=== PATIENT | male | born 1940 | race Caucasian/White ===

== ENCOUNTER 2017-01-30 04:51 | Emergency (ER) | payer MEDICARE, OTHER ==
[~2017-01-30] VITALS: Ht 188 cm; Wt 75.0 kg
[~2017-01-30 04:51] MED LIST: ASPI81CH CHEW; BACL10TA PO; CEPH-460 PO; CLON1TAB PO; LISI-515 PO; TAMS5CAP PO; THEO300T24 PO; VENTAER INH
[2017-01-30 04:58] VITALS: BP 193/97; PULSE 76; RESP 18; TEMP 98.7; O2SAT 98
--- NOTE | 2017-01-30 05:11 | PD ---
HPI Chief Complaint: Complaint Time Seen by Provider: 04:58 Travel History International Travel<30 days: No Contact w/Intl Traveler<30days: No Traveled to known affect area: No History of Present Illness HPI 76-year-old male with Valladares catheter brought in by ambulance from home for lower abdominal pain and pain in his groin. The patient reports that the pain started yesterday. He states that the nurse that is supposed to change his catheter at home has not shown up for the last month. He also reports that his urine is very cloudy. Pain described as sharp, constant, slightly worse with movement and palpation. He denies fevers or chills. History of inguinal hernia repair. No other abdominal surgeries. PFSH Past Medical History Anemia: No Arthritis: Yes (KNEES) Asthma: No Autoimmune Disease: No Blood Disorders: No Bipolar Disorder: No Anxiety: Yes (FEELS ANXIOUS WHEN HE HAS "ONE OF THESE ATTACKS") Depression: Yes Heart Rhythm Problems: Yes (BRADYCARDIA) Cancer: No Cardiovascular Problems: Yes High Cholesterol: Yes Chemotherapy: No Chest Pain: No Congestive Heart Failure: No COPD: Yes Cerebrovascular Accident: No Coronary Artery Disease: No Diabetes: No Endocrine: No Gastrointestinal Disorders: No GERD: No Genitourinary: Yes (urine retention) Headaches: No Hepatitis: No Hiatal Hernia: No Hypertension: Yes Implanted Vascular Access Dvce: No Insomnia: Yes Kidney Stones: No Musculoskeletal: No Neurologic: No Psychiatric: No Respiratory: Yes Immunizations Current: Yes Migraines: No Myocardial Infarction: No Pancreatitis: No Radiation Therapy: No Schizophrenia: No Seizures: No Sickle Cell Disease: No Thyroid Disease: No Ulcer: No Past Surgical History Abdominal Surgery: Yes (INGUINAL HERNIA) AICD: No Appendectomy: No Arteriovenous Shunt: No Cardiac Surgery: No Cholecystectomy: No Coronary Artery Bypass Graft: No Coronary Stent: No Insulin Pump: No Joint Replacement: No Oral Surgery: Yes (TOOTH EXTRACTION) Pacemaker: No Tonsillectomy: No Tympanostomy Tube: No Other Surgery: Yes Social History Alcohol Use: Yes (VERY RARELY) Tobacco Use: Yes (1/2 ppd) Substance Use: No Allergies-Medications (Allergen,Severity, Reaction): Coded Allergies: No Known Allergies (Verified , 01/30/17) Reported Meds & Prescriptions Reported Meds & Active Scripts Active Cipro (Ciprofloxacin HCl) 500 Mg Tab 500 Mg PO BID 14 Days Reported Clonazepam 1 Mg Tab 1 Mg PO HS Flomax (Tamsulosin HCl) 0.4 Mg Cap 0.8 Mg PO DAILY Ventolin Hfa 18 GM Inh (Albuterol Sulfate) 90 Mcg/Act Aer 1 Puff INH Q4H PRN Baclofen 10 Mg Tab 10 Mg PO TID Theophylline SR (Theophylline) 300 Mg Tab 300 Mg PO Q12H Lisinopril 20 Mg Tab 20 Mg PO BID Aspirin 81 Mg Chew 81 Mg CHEW DAILY Review of Systems Except as stated in HPI: all other systems reviewed are Neg Physical Exam Narrative GENERAL: Well-developed, well-nourished, comfortable, pleasant, no acute distress. SKIN: Focused skin assessment warm/dry. No rash. HEAD: Atraumatic. Normocephalic. EYES: Pupils equal and round. No scleral icterus. No injection or drainage. ENT: Mucous membranes pink and moist. NECK: Trachea midline. No JVD. CARDIOVASCULAR: Regular rate and rhythm. RESPIRATORY: No accessory muscle use. Clear to auscultation. Breath sounds equal bilaterally. GASTROINTESTINAL: Abdomen soft, nondistended. Mild suprapubic tenderness without peritoneal signs. Rest of abdomen is soft and nontender. Normal bowel sounds. : Valladares in place. Normal external genitalia. Cloudy urine in Valladares bag. MUSCULOSKELETAL: No obvious deformities. No clubbing. No cyanosis. No edema. NEUROLOGICAL: Awake and alert. No obvious cranial nerve deficits. Motor grossly within normal limits. Normal speech. PSYCHIATRIC: Appropriate mood and affect; insight and judgment normal. Data Data Last Documented VS Vital Signs Date Time Temp Pulse Resp B/P Pulse Ox O2 Delivery O2 Flow Rate FiO2 01/30/17 05:14 73 18 179/92 97 Room Air 01/30/17 04:58 98.7 Orders Complete Blood Count With Diff (01/30/17 05:05) Comprehensive Metabolic Panel (01/30/17 05:05) Lipase (01/30/17 05:05) Prothrombin Time / Inr (Pt) (01/30/17 05:05) Act Partial Throm Time (Ptt) (01/30/17 05:05) Urinalysis - C+S If Indicated (01/30/17 05:05) Iv Access Insert/Monitor (01/30/17 05:05) Ecg Monitoring (01/30/17 05:05) Oximetry (01/30/17 05:05) Sodium Chloride 0.9% Flush (Ns Flush) (01/30/17 05:15) Urinary Catheter Insert/Apply (01/30/17 05:05) Morphine Inj (Morphine Inj) (01/30/17 05:30) Urine Culture (01/30/17 05:15) Ceftriaxone Inj (Rocephin Inj) (01/30/17 06:30) Labs Laboratory Tests Test 01/30/17 05:15 White Blood Count 10.6 TH/MM3 Red Blood Count 4.37 MIL/MM3 Hemoglobin 14.1 GM/DL Hematocrit 40.2 % Mean Corpuscular Volume 92.0 FL Mean Corpuscular Hemoglobin 32.2 PG Mean Corpuscular Hemoglobin 35.0 % Concent Red Cell Distribution Width 13.5 % Platelet Count 128 TH/MM3 Mean Platelet Volume 8.6 FL Neutrophils (%) (Auto) 86.3 % Lymphocytes (%) (Auto) 6.4 % Monocytes (%) (Auto) 6.6 % Eosinophils (%) (Auto) 0.4 % Basophils (%) (Auto) 0.3 % Neutrophils # (Auto) 9.1 TH/MM3 Lymphocytes # (Auto) 0.7 TH/MM3 Monocytes # (Auto) 0.7 TH/MM3 Eosinophils # (Auto) 0.0 TH/MM3 Basophils # (Auto) 0.0 TH/MM3 CBC Comment DIFF FINAL Differential Comment Prothrombin Time 11.0 SEC Prothromb Time International 1.0 RATIO Ratio Activated Partial 28.7 SEC Thromboplast Time Urine Color LIGHT-ORANGE Urine Turbidity CLOUDY Urine pH 7.0 Urine Specific [place] 1.015 Urine Protein 300 mg/dL Urine Glucose (UA) NEG mg/dL Urine Ketones NEG mg/dL Urine Occult Blood MOD Urine Nitrite NEG Urine Bilirubin NEG Urine Urobilinogen LESS THAN 2.0 MG/DL Urine Leukocyte Esterase LARGE Urine RBC /hpf Urine WBC /hpf Urine WBC Clumps MANY Urine Bacteria MANY /hpf Urine Yeast (Budding) Microscopic Urinalysis Comment CULTURE INDICATED Sodium Level 142 MEQ/L Potassium Level 3.8 MEQ/L Chloride Level 109 MEQ/L Carbon Dioxide Level 25.2 MEQ/L Anion Gap 8 MEQ/L Blood Urea Nitrogen 19 MG/DL Creatinine 0.87 MG/DL Estimat Glomerular Filtration 85 ML/MIN Rate Random Glucose 117 MG/DL Calcium Level 9.0 MG/DL Total Bilirubin 0.7 MG/DL Aspartate Amino Transf 12 U/L (AST/SGOT) Alanine Aminotransferase 13 U/L (ALT/SGPT) Alkaline Phosphatase 80 U/L Total Protein 6.9 GM/DL Albumin 4.3 GM/DL Lipase 136 U/L MDM Medical Decision Making Medical Screen Exam Complete: Yes Emergency Medical Condition: Yes Differential Diagnosis UTI, Valladares obstruction, renal insufficiency, intra-abdominal infection, cystitis Narrative Course Bedside transabdominal ultrasound performed by me using the curvilinear probe shows Valladares balloon within the bladder with a large and distended bladder. The patient's Valladares catheter was replaced and 600 cc of cloudy urine was obtained. Vital signs reviewed. CBC shows WBC 10.6, hemoglobin 14.1, hematocrit 40.2, platelets 128, neutrophils 86.3%. CMP is unremarkable. Lipase is 136. UA shows cloudy urine, 300 protein, moderate occult blood, large leukocyte esterase, many wbc clumps, many bacteria. Patient was given a dose of Rocephin. He is hemodynamically stable. After replacement of Valladares catheter the patient reports that his pain is completely resolved. He is stable for discharge home with outpatient follow-up with his primary care physician this week. He'll be discharged home with a prescription for Cipro. He was informed on when to return to the emergency department. He verbalizes understanding and agreement with plan. Procedures Procedure Narrative Bedside transabdominal ultrasound: Using the curvilinear ultrasound probe, bedside ultrasound was performed by me and shows Valladares balloon within the bladder with large distended bladder. Diagnosis Primary Impression: Obstructed Valladares catheter Qualified Code: T83.091A - Obstructed Valladares catheter, initial encounter Additional Impression: UTI (urinary tract infection) due to urinary indwelling Valladares catheter Qualified Code: T83.511S - Urinary tract infection associated with indwelling urethral catheter, sequela Referrals: Primary Care Physician 3 days Additional Instructions: Follow-up with your primary care physician this week. Return to the emergency department for worsening symptoms or any other concerns. Scripts Ciprofloxacin (Cipro)500 Mg [id number] Mg PO BID 14 Days Ref 0 Prov:Reggie Eagle MD 01/30/17 Disposition: 01 DISCHARGE HOME Condition: Stable Reggie Eagle MD Jan 30, 2017 05:11 Reggie Eagle MD Jan 30, 2017 05:11
[2017-01-30 05:14] VITALS: BP 179/92; PULSE 73; RESP 18; O2SAT 97
[2017-01-30] MEDS ORDERED: SODIUM CHLORIDE 0.9% FLUSH 10 ML FLUSH IV FLUSH PRN (05:15)
[2017-01-30 05:29] LABS: AUTOMATED NEUTROPHIL # 9.1 TH/MM3 (1.8-7.7); BASOPHIL % 0.3 % (0.0-2.0); EOSINOPHIL % 0.4 % (0.0-4.0); HEMATOCRIT 40.2 % (39.0-51.0); HEMO FLAGS DIFF FINAL; LYMPH % 6.4 % (9.0-44.0); LYMPHOCYTE # 0.7 TH/MM3 (1.0-4.8); MEAN CORPUSCULAR HEMOGLOBIN 32.2 PG (27.0-34.0); MONO % 6.6 % (0.0-8.0); NEUT % 86.3 % (16.0-70.0); PLATELET COUNT 128 TH/MM3 (150-450); RED BLOOD COUNT 4.37 MIL/MM3 (4.50-5.90); RED CELL DISTRIBUTION WIDTH 13.5 % (11.6-17.2); WHITE BLOOD COUNT 10.6 TH/MM3 (4.0-11.0)
[2017-01-30] MEDS ORDERED: MORPHINE SULFATE 4 MG/ML INJ IV PUSH ONE (05:30)
[2017-01-30 05:48] LABS: APTT (PATIENT) 28.7 SEC (24.3-30.1)
[2017-01-30 06:00] LABS: BACTERIA, URINE MANY /hpf; BLOOD, URINE MOD (NEG); COMMENT (UR) CULTURE INDICATED; CULTURE IF INDICATED CULTURE INDICATED; GLUCOSE,URINE NEG (NEG); KETONE, URINE NEG (NEG); NITRITE,URINE NEG (NEG)
[2017-01-30 06:02] LABS: URINE COLOR LIGHT-ORANGE (YELLW/STRAW)
[2017-01-30 06:04] LABS: ALT (GPT) 13 U/L (12-78); ANION GAP 8 MEQ/L (5-15); AST (GOT) 12 U/L (15-37); BICARBONATE 25.2 MEQ/L (21.0-32.0); BLOOD UREA NITROGEN 19 MG/DL (7-18); CHLORIDE 109 MEQ/L (98-107); GLOMERULAR FILTRATION RATE 85 ML/MIN (>89); POTASSIUM 3.8 MEQ/L (3.5-5.1); SODIUM (NA) 142 MEQ/L (136-145)
[2017-01-30 06:07] LABS: ALKALINE PHOSPHATASE 80 U/L (45-117); TOTAL BILIRUBIN ADULT 0.7 MG/DL (0.2-1.0)
[2017-01-30] MEDS ORDERED: cefTRIAXone INJ 1,000 MG in SODIUM CHLORIDE 0.9% INJ 100 ML IV ONE (06:30)
[2017-01-30] MEDS ORDERED: CIPR-9 PO (06:31)
== END 2017-01-30 08:02 | disposition home or self-care (01) ==
LOC: NEPC 04:51
DX: N39.0 Urinary tract infection, site not specified (principal); T83.511A Infection and inflammatory reaction due to indwelling urethral catheter, initial encounter; E78.00 Pure hypercholesterolemia, unspecified; J44.9 Chronic obstructive pulmonary disease, unspecified; B96.20 Unspecified Escherichia coli [E. coli] as the cause of diseases classified elsewhere; Y84.6 Urinary catheterization as the cause of abnormal reaction of the patient, or of later complication, without mention of misadventure at the time of the procedure
CPT/HCPCS: 51702; 80053; 81001; 83690; 85025; 85610; 85730; 87077; 87086; 87186; 96365; 96375; 99284; J0696; J2270

== ENCOUNTER 2017-02-07 17:08 | Emergency (ER) | payer OTHER ==
[~2017-02-07] VITALS: Ht 180.3 cm; Wt 71.0 kg
[~2017-02-07 17:08] MED LIST changes: -CEPH-460 PO; +CIPR-9 PO
[2017-02-07 17:49] VITALS: BP 133/82; PULSE 53; RESP 18; TEMP 97.3; O2SAT 96
[2017-02-07 17:55] LABS: MEAN CORPUSCULAR HGB CONC 36.1 % (32.0-36.0)
[2017-02-07] MEDS ORDERED: CIPR-9 PO (18:17)
[2017-02-07] MEDS ORDERED: CLON0.5T PO (18:17)
[2017-02-07] MEDS ORDERED: NAPR220T95 PO (18:19)
[2017-02-07] MEDS ORDERED: CEPH-460 PO (18:19)
--- NOTE | 2017-02-07 18:21 | PD ---
HPI Chief Complaint: Psychiatric Symptoms Time Seen by Provider: 18:18 Travel History International Travel<30 days: No Contact w/Intl Traveler<30days: No Traveled to known affect area: No History of Present Illness HPI 76-year-old male that presents to the ED for evaluation of psych. Patient was [place] acted by police after apparently he made suicidal statements after his ride from a urologist office did not show up. Patient was frustrated because of this as he went to go home. Patient apparently made statements and the police King acted him for his own safety. Patient states that he's doesn't have any suicidal or homicidal ideation. 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 He denies any illicit drug use or alcohol abuse. He denies any chest pain. No shortness of breath. Other medical prongs at this time. He usually uses a cane to walk. He has no allergies to medication. He has never been King acted. [facility] Past Medical History Anemia: No Arthritis: Yes (KNEES) Asthma: No Autoimmune Disease: No Blood Disorders: No Bipolar Disorder: No Anxiety: Yes (FEELS ANXIOUS WHEN HE HAS "ONE OF THESE ATTACKS") Depression: Yes Heart Rhythm Problems: Yes (BRADYCARDIA) Cancer: No Cardiovascular Problems: Yes High Cholesterol: Yes Chemotherapy: No Chest Pain: No Congestive Heart Failure: No COPD: Yes Cerebrovascular Accident: No Coronary Artery Disease: No Diabetes: No Endocrine: No Gastrointestinal Disorders: No GERD: No Genitourinary: Yes (urine retention) Headaches: No Hepatitis: No Hiatal Hernia: No Hypertension: Yes Implanted Vascular Access Dvce: No Insomnia: Yes Kidney Stones: No Musculoskeletal: No Neurologic: No Psychiatric: No Respiratory: Yes Immunizations Current: Yes Migraines: No Myocardial Infarction: No Pancreatitis: No Radiation Therapy: No Schizophrenia: No Seizures: No Sickle Cell Disease: No Thyroid Disease: No Ulcer: No Past Surgical History Abdominal Surgery: Yes (INGUINAL HERNIA) AICD: No Appendectomy: No Arteriovenous Shunt: No Cardiac Surgery: No Cholecystectomy: No Coronary Artery Bypass Graft: No Coronary Stent: No Insulin Pump: No Joint Replacement: No Oral Surgery: Yes (TOOTH EXTRACTION) Pacemaker: No Tonsillectomy: No Tympanostomy Tube: No Other Surgery: Yes Social History Alcohol Use: No (DENIES) Tobacco Use: Yes (1/2 ppd) Substance Use: No Allergies-Medications (Allergen,Severity, Reaction): Coded Allergies: No Known Allergies (Verified , 02/07/17) Reported Meds & Prescriptions Reported Meds & Active Scripts Active Reported Keflex (Cephalexin) 500 Mg Cap 500 Mg PO TID Aleve (Naproxen Sodium) 220 Mg Tab 220 Mg PO BID PRN Cipro (Ciprofloxacin HCl) 500 Mg Tab 500 Mg PO BID Clonazepam 0.5 Mg Tab 0.5 Mg PO HS Flomax (Tamsulosin HCl) 0.4 Mg Cap 0.4 Mg PO HS Ventolin Hfa 18 GM Inh (Albuterol Sulfate) 90 Mcg/Act Aer 2 Puff INH QID PRN Baclofen 10 Mg Tab 10 Mg PO TID Theophylline SR (Theophylline) 300 Mg Tab 300 Mg PO Q12H Lisinopril 20 Mg Tab 20 Mg PO BID Aspirin 81 Mg Chew 81 Mg CHEW DAILY Review of Systems Except as stated in HPI: all other systems reviewed are Neg Physical Exam Narrative GENERAL: SKIN: Warm and dry. HEAD: Atraumatic. Normocephalic. EYES: Pupils equal and round 4 mm reactive to light and accommodation. No scleral icterus. No injection or drainage. ENT: No nasal bleeding or discharge. Mucous membranes pink and moist. Tongue is midline. No uvula deviation. NECK: Trachea midline. No JVD. CARDIOVASCULAR: Regular rate and rhythm. No murmurs, S3, S4. RESPIRATORY: No accessory muscle use. Clear to auscultation. Breath sounds equal bilaterally. GASTROINTESTINAL: Abdomen soft, non-tender, nondistended. Hepatic and splenic margins not palpable. MUSCULOSKELETAL: Extremities without clubbing, cyanosis, or edema. No obvious deformities. Full range of motion of the upper and lower extremities bilaterally. 2+ pulses bilaterally. NEUROLOGICAL: Awake and alert. No obvious cranial nerve deficits. Motor grossly within normal limits. Five out of 5 muscle strength in the arms and legs. Normal speech. PSYCHIATRIC: Appropriate mood and affect; insight and judgment normal. Data Data Last Documented VS Vital Signs Date Time Temp Pulse Resp B/P Pulse Ox O2 Delivery O2 Flow Rate FiO2 02/07/17 19:34 97.6 55 18 146/84 98 Orders Complete Blood Count With Diff (02/07/17 17:54) Comprehensive Metabolic Panel (02/07/17 17:54) Urinalysis - C+S If Indicated (02/07/17 17:54) Psych Screen (02/07/17 17:54) Drug Screen, Random Urine (02/07/17 17:54) Alcohol (Ethanol) (02/07/17 17:54) Labs Laboratory Tests Test 02/07/17 19:38 White Blood Count 7.1 TH/MM3 Red Blood Count 4.58 MIL/MM3 Hemoglobin 15.0 GM/DL Hematocrit 41.5 % Mean Corpuscular Volume 90.7 FL Mean Corpuscular Hemoglobin 32.7 PG Mean Corpuscular Hemoglobin 36.1 % Concent Red Cell Distribution Width 13.1 % Platelet Count 197 TH/MM3 Mean Platelet Volume 8.2 FL Neutrophils (%) (Auto) 70.2 % Lymphocytes (%) (Auto) 20.9 % Monocytes (%) (Auto) 6.8 % Eosinophils (%) (Auto) 1.7 % Basophils (%) (Auto) 0.4 % Neutrophils # (Auto) 5.0 TH/MM3 Lymphocytes # (Auto) 1.5 TH/MM3 Monocytes # (Auto) 0.5 TH/MM3 Eosinophils # (Auto) 0.1 TH/MM3 Basophils # (Auto) 0.0 TH/MM3 CBC Comment AUTO DIFF Sodium Level 143 MEQ/L Potassium Level 4.3 MEQ/L Chloride Level 108 MEQ/L Carbon Dioxide Level 26.1 MEQ/L Anion Gap 9 MEQ/L Blood Urea Nitrogen 16 MG/DL Creatinine 0.71 MG/DL Estimat Glomerular Filtration 107 ML/MIN Rate Random Glucose 89 MG/DL Calcium Level 9.4 MG/DL Total Bilirubin 0.4 MG/DL Aspartate Amino Transf 17 U/L (AST/SGOT) Alanine Aminotransferase 19 U/L (ALT/SGPT) Alkaline Phosphatase 87 U/L Total Protein 7.1 GM/DL Albumin 4.1 GM/DL Ethyl Alcohol Level 5 MG/DL [facility] Medical Decision Making Medical Screen Exam Complete: Yes Emergency Medical Condition: Yes Medical Record Reviewed: Yes Interpretation(s) CBC & BMP Diagram 02/07/17 19:38 LFTS WNL alcohol negative Differential Diagnosis Depression versus suicidal ideation versus anxiety versus adjustment disorder versus mood disorder versus bipolar disorder versus schizophrenia versus paranoid disorder versus psychosis versus substance abuse versus alcohol abuse versus alcohol induced psychosis versus homicidality addition versus cutting versus personality disorder Narrative Course 76-year-old male that presents to the ED for evaluation of psych. Patient was properly examined and was found to have signs and symptoms consistent with appears to be psychiatric illness. Sign of acute medical distress. Patient does have a history of depression per records. At This time I recommend labs. Patient will be medically cleared. Okay to be seen by psych. Mental health screening was discussed with the patient. Diagnosis Primary Impression: Suicidal ideation Allan Tom Feb 07, 2017 18:21
[2017-02-07 19:34] VITALS: BP 146/84; PULSE 55; RESP 18; TEMP 97.6; O2SAT 98
[2017-02-07 20:32] LABS: BASOPHIL % 0.4 % (0.0-2.0); EOSINOPHIL # 0.1 TH/MM3 (0-0.4); EOSINOPHIL % 1.7 % (0.0-4.0); HEMATOCRIT 41.5 % (39.0-51.0); LYMPH % 20.9 % (9.0-44.0); LYMPHOCYTE # 1.5 TH/MM3 (1.0-4.8); MEAN CELL VOLUME 90.7 FL (80.0-100.0); MEAN CORPUSCULAR HEMOGLOBIN 32.7 PG (27.0-34.0); MONO % 6.8 % (0.0-8.0); NEUT % 70.2 % (16.0-70.0); PLATELET COUNT 197 TH/MM3 (150-450); RED BLOOD COUNT 4.58 MIL/MM3 (4.50-5.90); RED CELL DISTRIBUTION WIDTH 13.1 % (11.6-17.2); WHITE BLOOD COUNT 7.1 TH/MM3 (4.0-11.0)
[2017-02-07 20:35] LABS: HEMO FLAGS AUTO DIFF
[2017-02-07 21:06] LABS: ALKALINE PHOSPHATASE 87 U/L (45-117); ALT (GPT) 19 U/L (12-78); ANION GAP 9 MEQ/L (5-15); AST (GOT) 17 U/L (15-37); BICARBONATE 26.1 MEQ/L (21.0-32.0); BLOOD UREA NITROGEN 16 MG/DL (7-18); CHLORIDE 108 MEQ/L (98-107); GLOMERULAR FILTRATION RATE 107 ML/MIN (>89); POTASSIUM 4.3 MEQ/L (3.5-5.1); SODIUM (NA) 143 MEQ/L (136-145); TOTAL BILIRUBIN ADULT 0.4 MG/DL (0.2-1.0)
[2017-02-07 21:22] LABS: SCAN/DIFF AUTO DIFF CONFIRMED
[2017-02-08 01:10] VITALS: BP 152/81; PULSE 48; RESP 17; O2SAT 96
[2017-02-08 01:47] VITALS: PULSE 35; RESP 17; O2SAT 96
[2017-02-08 02:52] VITALS: BP 156/76; PULSE 49; RESP 16; O2SAT 97
[2017-02-08 03:22] LABS: AMPHETAMINE, URINE NEG (NEG); BARBITURATES, URINE NEG (NEG); COCAINE, URINE NEG (NEG)
[2017-02-08 09:00] VITALS: BP 138/87; PULSE 46; RESP 16; O2SAT 98
[2017-02-08 13:39] VITALS: BP_SYST 164; BP_SYST 170; BP_DIAS 73; BP_DIAS 81; PULSE 55; PULSE 76; RESP 20; O2SAT 96
--- NOTE | 2017-02-08 13:44 | EKG ---
Date Performed: 02/08/2017 Time Performed: 02:41:06 PTAGE: 76 years EKG: SINUS BRADYCARDIA MODERATE ST DEPRESSION ABNORMAL ECG Compared to prior tracing no signific ant change NO PREVIOUS TRACING DOCTOR: Guzman Plasencia Interpretating Date/Time 02/08/2017 13:39:07
--- NOTE | 2017-02-08 18:28 | PD ---
History of Present Illness Chief Complaint: Psychiatric Symptoms Time Seen by Provider: 18:00 Travel History International Travel<30 Days: No Contact w/Intl Traveler<30days: No Known affected area: No Legal Status Legal Status: King Act King Act Signed By: Christina Sharp History of Present Illness: History of Present Illness HPI 76-year-old, single male with no previous psychiatric history who presents to the ED under a BA . As per the report he advised the nurse that he wanted to put a revolver to his head or walk off the end of the pier into the ocean to end his life. Also stated that he was over the life he lives. The patient made the statements while he was at his urologist office and was made to wait for his ride and he wanted to go home. Ed documentation is reviewed and included in this report" Patient states that he's doesn't have any suicidal or homicidal ideation. 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 EMR is reviewed no [place] [facility] [place] No substance use. Patient is alert and oriented sitting at his door way enjoying his dinner. He calm, engaging and cooperative. Oriented x 4. His speech is clear and logical. He does not appear to be responding to any internal stimuli and denies any hallucinations. I can elicit no delusional material. He acknowledges he feels sad and depressed at times but he is not willing to initiate any treatment. . He states " It doesn't get that bad and I have means to cope with the feelings" . He goes on to say that he has means to deal with his depressed mood including working on the computer, watching videos and watching television. He denies ever receiving psychiatric treatment. He denies any suicidal or homicidal ideation, intent or plan. He states " I don't have a gun. I have not used a gun in over 40 years and I don't have the means to go to the beach". I said those things because I was frustrated". [facility] Past Medical History Anemia: No Arthritis: Yes (KNEES) Asthma: No Autoimmune Disease: No Blood Disorders: No Bipolar Disorder: No Anxiety: Yes (FEELS ANXIOUS WHEN HE HAS "ONE OF THESE ATTACKS") Depression: Yes Heart Rhythm Problems: Yes (BRADYCARDIA) Cancer: No Cardiovascular Problems: Yes High Cholesterol: Yes Chemotherapy: No Chest Pain: No Congestive Heart Failure: No COPD: Yes Cerebrovascular Accident: No Coronary Artery Disease: No Diabetes: No Endocrine: No Gastrointestinal Disorders: No GERD: No Genitourinary: Yes (urine retention) Headaches: No Hepatitis: No Hiatal Hernia: No Hypertension: Yes Implanted Vascular Access Dvce: No Insomnia: Yes Kidney Stones: No Musculoskeletal: No Neurologic: No Psychiatric: No Respiratory: Yes Immunizations Current: Yes Migraines: No Myocardial Infarction: No Pancreatitis: No Radiation Therapy: No Schizophrenia: No Seizures: No Sickle Cell Disease: No Thyroid Disease: No Ulcer: No Past Surgical History Abdominal Surgery: Yes (INGUINAL HERNIA) AICD: No Appendectomy: No Arteriovenous Shunt: No Cardiac Surgery: No Cholecystectomy: No Coronary Artery Bypass Graft: No Coronary Stent: No Insulin Pump: No Joint Replacement: No Oral Surgery: Yes (TOOTH EXTRACTION) Pacemaker: No Tonsillectomy: No Tympanostomy Tube: No Other Surgery: Yes Psychiatric History Psychiatric History Hx Psychiatric Treatment: None reported History of Inpatient Treatment: No Guns or firearms in home: No Social History Born in [place]. Moved to [place] in 1959 to attend graduate school. 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 He is single and has never . He moved to [place] in 1985 to care for his father. At this time he lives by himself. Has a cousin in [place] that he communicates with. Hx Alcohol Use: No (DENIES) Hx Tobacco Use: Yes (1/2 ppd) Hx Substance Use: No Hx of Substance Use Treatment: No Family Psychiatric History None reported Allergies-Medications (Allergen,Severity, Reaction): Coded Allergies: No Known Allergies (Verified , 02/07/17) Reported Meds & Prescriptions Reported Meds & Active Scripts Active Reported Keflex (Cephalexin) 500 Mg Cap 500 Mg PO TID Aleve (Naproxen Sodium) 220 Mg Tab 220 Mg PO BID PRN Cipro (Ciprofloxacin HCl) 500 Mg Tab 500 Mg PO BID Clonazepam 0.5 Mg Tab 0.5 Mg PO HS Flomax (Tamsulosin HCl) 0.4 Mg Cap 0.4 Mg PO HS Ventolin Hfa 18 GM Inh (Albuterol Sulfate) 90 Mcg/Act Aer 2 Puff INH QID PRN Baclofen 10 Mg Tab 10 Mg PO TID Theophylline SR (Theophylline) 300 Mg Tab 300 Mg PO Q12H Lisinopril 20 Mg Tab 20 Mg PO BID Aspirin 81 Mg Chew 81 Mg CHEW DAILY Review of Systems Constitutional: DENIES: Diaphoretic episodes, Fatigue, Fever, Weight gain, Weight loss, Chills, Dizziness, Change in appetite, Night Sweats Endocrine: DENIES: Heat/cold intolerance, Polydipsia, Polyuria, Polyphagia Eyes: COMPLAINS OF: Vision loss Ears, nose, mouth, throat: DENIES: Tinnitus, Hearing loss, Vertigo, Nasal discharge, Oral lesions, Throat pain, Hoarseness, Ear Pain, Running Nose, Epistaxis, Sinus Pain, Toothache, Odynophagia Respiratory: DENIES: Apneas, Cough, Snoring, Wheezing, Hemoptysis, Sputum production, Shortness of breath Cardiovascular: DENIES: Chest pain, Palpitations, Syncope, Dyspnea on Exertion , PND, Lower Extremity Edema, Orthopnea, Claudication Gastrointestinal: DENIES: Abdominal pain, Black stools, Bloody stools, Constipation, Diarrhea, Nausea, Vomiting, Difficulty Swallowing, Anorexia Genitourinary: COMPLAINS OF: Urinary incontinence, Dysuria Musculoskeletal: COMPLAINS OF: Joint pain Integumentary: DENIES: Abnormal pigmentation, Nail changes, Pruritus, Rash Hematologic/lymphatic: DENIES: Bruising, Lymphadenopathy Immunologic/allergic: DENIES: Eczema, Urticaria Neurologic: COMPLAINS OF: Tremor, Poor Balance (uses a cane) Psychiatric: COMPLAINS OF: Depression Exam Alert: Yes Riley: Person (ox4) Mood: Calm Affect: Appropriate Speech: Clear, Logical Eye Contact: Normal Memory Intact: Comment (not impaired) Hallucinations: Other (deneis any) Delusions: No Suicidal: Ideation (deneis any) Homicidal: Ideation (deneis any) Insight/Judgement Fair. Not impaired. MDM Medical Decision Making Medical Record Reviewed: Yes Assessment/Plan At this time this patient does not meet criteria for inpatient treatment. He denies suicidal intent and acknowledges he made statement out of frustration. He does not want treatment for symptoms of depression and he is competent to make such decision. BA. Eric. Cleared from psychiatry for discharge. Psychoeducation. Support provided Orders Electrocardiogram (02/08/17 02:41) Results Vital Signs Date Time Temp Pulse Resp B/P Pulse Ox O2 Delivery O2 Flow Rate FiO2 02/08/17 13:39 55 20 164/73 96 02/08/17 09:00 46 16 138/87 98 02/08/17 02:52 49 16 156/76 97 Room Air 02/08/17 01:47 35 17 96 Room Air 02/08/17 01:10 48 17 152/81 96 Room Air 02/07/17 19:34 97.6 55 18 146/84 98 Laboratory Tests Test 02/07/17 02/08/17 19:38 02:52 Sodium Level 143 Potassium Level 4.3 Chloride Level 108 Carbon Dioxide Level 26.1 Anion Gap 9 Blood Urea Nitrogen 16 Creatinine 0.71 Estimat Glomerular Filtration 107 Rate Random Glucose 89 Calcium Level 9.4 Total Bilirubin 0.4 Aspartate Amino Transf 17 (AST/SGOT) Alanine Aminotransferase 19 (ALT/SGPT) Alkaline Phosphatase 87 Total Protein 7.1 Albumin 4.1 Ethyl Alcohol Level 5 White Blood Count 7.1 Red Blood Count 4.58 Hemoglobin 15.0 Hematocrit 41.5 Mean Corpuscular Volume 90.7 Mean Corpuscular Hemoglobin 32.7 Mean Corpuscular Hemoglobin 36.1 Concent Red Cell Distribution Width 13.1 Platelet Count 197 Mean Platelet Volume 8.2 Neutrophils (%) (Auto) 70.2 Lymphocytes (%) (Auto) 20.9 Monocytes (%) (Auto) 6.8 Eosinophils (%) (Auto) 1.7 Basophils (%) (Auto) 0.4 Neutrophils # (Auto) 5.0 Lymphocytes # (Auto) 1.5 Monocytes # (Auto) 0.5 Eosinophils # (Auto) 0.1 Basophils # (Auto) 0.0 CBC Comment AUTO DIFF Differential Comment AUTO DIFF CONFIRMED Urine Opiates Screen NEG Urine Barbiturates Screen NEG Urine Amphetamines Screen NEG Urine Benzodiazepines Screen NEG Urine Cocaine Screen NEG Urine Cannabinoids Screen NEG Diagnosis Primary Impression: Suicidal ideation Additional Impression: Adjustment disorder Psychiatrically Cleared: Yes Med/ Other Pt Specific Info: No Meds Exist/No RX given Disposition: 01 DISCHARGE HOME Condition: Stable Problem Qualifiers Additional Impression: Adjustment disorder Qualified Code: F43.21 - Adjustment disorder with depressed mood Ariella Sauceda Feb 08, 2017 18:28
== END 2017-02-08 18:56 | disposition home or self-care (01) ==
LOC: NEDAMB 17:08 → NEPE 02-08 18:56
DX: R45.851 Suicidal ideations (principal); F32.9 Major depressive disorder, single episode, unspecified; E78.00 Pure hypercholesterolemia, unspecified; J44.9 Chronic obstructive pulmonary disease, unspecified; I10 Essential (primary) hypertension; F17.200 Nicotine dependence, unspecified, uncomplicated; R94.31 Abnormal electrocardiogram [ECG] [EKG]
CPT/HCPCS: 80053; 80307; 85025; 93005

== ENCOUNTER 2017-07-18 15:38 | Emergency (ER) | payer OTHER ==
[~2017-07-18] VITALS: Ht 188 cm; Wt 75.0 kg
[~2017-07-18 15:38] MED LIST changes: +CEPH-460 PO; +CLON0.5T PO; -CLON1TAB PO; +NAPR220T95 PO
[2017-07-18 16:27] VITALS: BP 171/94; PULSE 71; RESP 16; TEMP 98.5; O2SAT 98
--- NOTE | 2017-07-18 16:46 | PD ---
HPI Chief Complaint: Complaint Time Seen by Provider: 16:34 Travel History International Travel<30 days: No Contact w/Intl Traveler<30days: No Traveled to known affect area: No History of Present Illness HPI 77 y/o male presents with pain near his suprapubic catheter site that he has had for a month after he stated that his bladder was not functioning. He states Dr. Rolon is his urologist. He denies any fever or other concurrent complaints. He states that he is still having urine output through his catheter site. He denies other complaints. PFSH Past Medical History Anemia: No Arthritis: Yes (KNEES) Asthma: No Autoimmune Disease: No Blood Disorders: No Bipolar Disorder: No Anxiety: Yes (FEELS ANXIOUS WHEN HE HAS "ONE OF THESE ATTACKS") Depression: Yes Heart Rhythm Problems: Yes (BRADYCARDIA) Cancer: No Cardiovascular Problems: Yes High Cholesterol: Yes Chemotherapy: No Chest Pain: No Congestive Heart Failure: No COPD: Yes Cerebrovascular Accident: No Coronary Artery Disease: No Diabetes: No Endocrine: No Gastrointestinal Disorders: No GERD: No Genitourinary: Yes (urine retention) Headaches: No Hepatitis: No Hiatal Hernia: No Hypertension: Yes Implanted Vascular Access Dvce: No Insomnia: Yes Kidney Stones: No Musculoskeletal: No Neurologic: No Psychiatric: No Respiratory: Yes Immunizations Current: Yes Migraines: No Myocardial Infarction: No Pancreatitis: No Radiation Therapy: No Schizophrenia: No Seizures: No Sickle Cell Disease: No Thyroid Disease: No Ulcer: No Past Surgical History Abdominal Surgery: Yes (INGUINAL HERNIA) AICD: No Appendectomy: No Arteriovenous Shunt: No Cardiac Surgery: No Cholecystectomy: No Coronary Artery Bypass Graft: No Coronary Stent: No Insulin Pump: No Joint Replacement: No Oral Surgery: Yes (TOOTH EXTRACTION) Pacemaker: No Tonsillectomy: No Tympanostomy Tube: No Other Surgery: Yes Social History Alcohol Use: No Tobacco Use: Yes Substance Use: No Allergies-Medications (Allergen,Severity, Reaction): Coded Allergies: No Known Allergies (Verified , 02/07/17) Reported Meds & Prescriptions Reported Meds & Active Scripts Active Reported Keflex (Cephalexin) 500 Mg Cap 500 Mg PO TID Aleve (Naproxen Sodium) 220 Mg Tab 220 Mg PO BID PRN Cipro (Ciprofloxacin HCl) 500 Mg Tab 500 Mg PO BID Clonazepam 0.5 Mg Tab 0.5 Mg PO HS Flomax (Tamsulosin HCl) 0.4 Mg Cap 0.4 Mg PO HS Ventolin Hfa 18 GM Inh (Albuterol Sulfate) 90 Mcg/Act Aer 2 Puff INH QID PRN Baclofen 10 Mg Tab 10 Mg PO TID Theophylline SR (Theophylline) 300 Mg Tab 300 Mg PO Q12H Lisinopril 20 Mg Tab 20 Mg PO BID Aspirin 81 Mg Chew 81 Mg CHEW DAILY Review of Systems Except as stated in HPI: all other systems reviewed are Neg Physical Exam Narrative GENERAL: Well-nourished, well-developed patient. SKIN: Warm and dry. HEAD: Normocephalic and atraumatic. EYES: No injection or drainage. ENT: No nasal drainage noted. NECK: Supple, trachea midline. CARDIOVASCULAR: Regular rate and rhythm RESPIRATORY: Breath sounds equal bilaterally at apices. No accessory muscle use. GASTROINTESTINAL: Abdomen soft, mild tenderness noted around suprapubic site without active signs of drainage or redness or bleeding, nondistended. NEUROLOGICAL: Awake, moves extremities. Normal speech. Data Data Last Documented VS Vital Signs Date Time Temp Pulse Resp B/P (MAP) Pulse Ox O2 Delivery O2 Flow Rate FiO2 07/18/17 17:16 72 16 141/56 (84) 96 07/18/17 16:27 98.5 Orders MDM Medical Decision Making Medical Screen Exam Complete: Yes Emergency Medical Condition: Yes Medical Record Reviewed: Yes (past history confirm) Differential Diagnosis UTI, catheter pain, stone Narrative Course Will check urinalysis and blood work and discuss with his urologist Urologist states that there is no indication for blood work or urine today and he can follow him in the office on Friday. Updated patient and he states he will need help trying to get there as he has a nurse that checks on him once a week or so but his neighbor moved. Will have case management talk with patient. Given return instructions. Agrees to no testing here with close follow-up Physician Communication Physician Communication dr rolon states no need for testing in er and will see in office on friday Diagnosis Primary Impression: Suprapubic pain, acute Referrals: Jacob Rolon MD call for appointment friday Patient Instructions: General Instructions Additional Instructions: return as needed, tylenol as needed Med/Other Pt SpecificInfo: No Change to Meds Disposition: DISCHARGE HOME Condition: Stable Rachelle Traore MD Jul 18, 2017 16:46
[2017-07-18 17:16] VITALS: BP 141/56
== END 2017-07-18 17:20 | disposition home or self-care (01) ==
LOC: NEPE 15:38
DX: R10.30 Lower abdominal pain, unspecified (principal); I10 Essential (primary) hypertension; J44.9 Chronic obstructive pulmonary disease, unspecified; M19.90 Unspecified osteoarthritis, unspecified site
CPT/HCPCS: 99282